=== PATIENT | female | born 1955 | race Caucasian/White ===

== ENCOUNTER → 2016-03-21 | Outpatient (CLI) | payer BC ==
--- NOTE | 2016-03-21 09:55 | MA ---
Right Unilateral Digital Diagnostic Mammogram History: Asymmetry in the upper outer right breast. Comparison: Mammograms through 2007. Technique: Implant-displaced CC and mediolateral oblique spot compression and true lateral spot magni fication views and a true lateral view were obtained. Findings: There are two persistent focal asymmetries in the upper outer right breast. Milk of calcium calcifications are again noted in the superior right breast. Impression: Persistent focal asymmetries in the upper outer right breast. BI-RADS 0: Needs additional imaging evaluation. Recommendation: Ultrasound, which will be performed later the same day. Please see ultrasound report and recommendations. [facility] will send a result letter to the patient. Dr. Giancarlo Madden reviewed the study and agrees with the findings and recommendations.
--- NOTE | 2016-03-21 10:18 | US ---
Diagnostic Right Breast Ultrasound History: Asymmetries on mammograms. Comparison: Diagnostic mammograms same day, screening mammogram February 09, 2016. Technique: Limited grayscale and Doppler ultrasound in the region of mammographic abnormality is perf ormed. Real-time sonography is performed by the radiologist. Findings: Ultrasound of the area of mammographic asymmetries is performed, showing a 1.7 x 0.7 x 1.3 cm simple cyst at 10 o'clock approximately 5 cm from the nipple and a 1.2 x 1.1 x 0.6 cm simple cyst at 10 o'clock 8 cm from the nipple. Scattered additional simple cysts are present. No solid masses or areas of architectural distortion are identified. Limited views of the implant are normal. Impression: Simple cysts corresponding to the mammographic asymmetries. BI-RADS 2: Benign Findings. Recommendation: Screening mammograms in one year or sooner if clinically indicated. Findings and recommendations were discussed with the patient. [facility] will send a result letter to the patient.
== END ==
LOC: BRMIMAGING 08:47
DX: N60.11 Diffuse cystic mastopathy of right breast (principal)
CPT/HCPCS: 76641-PO; G0206

== ENCOUNTER → 2017-03-26 | Outpatient (CLI) | payer BC | LOC: BRMIMAGING 08:18 | DX: Z12.31 Encounter for screening mammogram for malignant neoplasm of breast (principal) ==

== ENCOUNTER → 2017-06-19 | Outpatient (CLI) | payer BC | LOC: FIMAGING 08:37 | DX: N63.11 Unspecified lump in the right breast, upper outer quadrant (principal) ==

== ENCOUNTER → 2018-03-27 | Outpatient (CLI) | payer BC | LOC: BRMIMAGING 08:14 | DX: Z12.31 Encounter for screening mammogram for malignant neoplasm of breast (principal) ==